=== PATIENT | male | born 1960 | race Caucasian/White ===

== ENCOUNTER 2023-06-15 18:56 | Emergency (ER) | payer OTHER, SELFPAY ==
[2023-06-15 19:07] VITALS: BP 129/69
--- NOTE | 2023-06-15 19:40 | ED.GENMED ---
History of Present Illness
General
Chief Complaint: Skin Problem
Source: patient
Exam Limitations: none
Time Seen by Provider: 06/15/23 19:24
Nursing documentation reviewed up to this point in time: agreed with
Travel History
Have you had any contact with someone who has COVID-19?: No
Do you have any symptoms of coronavirus? Fever > 100 degrees, chills, cough, shortness of breath, sore throat, loss of taste or smell, muscle aches, or headache?: No
History of Present Illness
History of Present Illness:
Patient presents to ED secondary to worsening right thigh pain, swelling, and redness over the past 5 days, after administering Pneumovax. Denies fever or chills. Denies nausea or vomiting. Denies previous history of skin infection.
Past History
Past History
ED Past Medical History: CAD, HTN and Hypercholesterolemia
ED Past Surgical History: Cardiac (stents)
Patient has exhibited threatening behavior?: No
Social History
Tobacco: Former smoker
Alcohol: None
Drug: None
Personal:
Review of Systems
Review of Systems
Allergies reviewed?: Yes
All Other Systems: ROS reviewed and negative except as documented in HPI and ROS
Constitutional: Reports no symptoms; Denies fever or chills
ABD/GI: Reports no symptoms
Musculoskeletal: Reports no symptoms
Skin: Reports other (Thigh redness/swelling)
Neurological: Reports no symptoms
Phy Exam
Physical Exam
Physical Exam:
Physical Exam
General: no apparent distress, not acutely ill. afebrile
Head: nc/at. eomi
Neck: supple. normal range of motion
Abdomen: normal bowel sounds. not tender.
Neuro: alert and oriented. no focal neurological deficits
Skin: punctured tiana noted over right lateral thigh with surrounding erythema/mild warmth. no induration noted.
Psychiatric: well kept. interactive and cooperative
Extremities: no edema. no calf tenderness.
Course
Orders/Labs/Results
Orders:
Orders
06/15/23 19:43
Cephalexin Monohydrate [Keflex] 500 mg PO NOW STA
Vital Signs
Initial and Last Documented VS:
Initial Vital Signs
Temp Pulse Resp BP Pulse Ox
98.9 F 66 18 129/69 98
06/15/23 19:07 06/15/23 19:07 06/15/23 19:07 06/15/23 19:07 06/15/23 19:07
Last Documented Vital Signs
Temp Pulse Resp BP Pulse Ox
98.9 F 66 18 129/69 98
06/15/23 19:07 06/15/23 19:07 06/15/23 19:07 06/15/23 19:07 06/15/23 19:07
MDM/Problems Addressed
MDM/Problems Addressed:
History and exam consistent with likely localized reaction to vaccination, but difficult to exclude potential development of superimposed infection. As such, patient will be advised to continue to apply warm compress but will be started on Keflex x
7 days, along with PCP follow-up next week. Advised to return to ED with significant worsening symptoms, i.e. fever/worsening pain/swelling/drainage.
*Critical Care Note
Total Time (30-74mins, 75-104mins- exclusive of procedures): Not Applicable
ED Attending Note
-
Portions of this chart may have been created with voice recognition software.� Occasional wrong word or��sound alike� substitutions may have occurred due to the inherent limitations of voice recognition software.
Discharge Plan
Departure
Patient Disposition: Home (Routine Discharge)
Date of Disposition: 06/15/23
Time of Disposition: 19:44
Patient with high blood pressure during this ER visit?: Yes
Discharge Problem:
Cellulitis
Instructions: Cellulitis (Skin Infection), Adult (DC)
Prescriptions:
New
cephalexin 500 mg capsule
500 mg PO TID Qty: 20 0RF
No Action
multivitamin 1 EACH tablet
1 ea PO DAILY
cyanocobalamin (vitamin B-12) 1,000 MCG tablet
1,000 mcg PO DAILY
clopidogrel 75 MG tablet
75 mg PO DAILY
aspirin 81 MG tablet,chewable
81 mg PO DAILY
fluoxetine 20 MG capsule
40 mg PO DAILY
carvedilol 3.125 MG tablet
3.125 mg PO BID
polyethylene glycol 3350 17 GRAMS powder in packet
17 grams PO DAILY
ondansetron HCl 8 mg Tablet
8 mg PO Q12H
pantoprazole [Protonix] 40 mg Tablet,Delayed Release (Dr/Ec)
40 mg PO BID
ezetimibe 10 mg Tablet
10 mg PO DAILY
hydrochlorothiazide 12.5 mg Tablet
12.5 mg PO BID
ranolazine 1,000 mg Tablet Extended Release 12 Hr
1,000 mg PO BID
Repatha Syringe 140 mg/mL syringe
140 mg SC Q2W Qty: 6 5RF
Activity Restrictions/Additional Instructions:
As discussed, please follow-up with your primary care physician for reevaluation next Monday. Until then, continue to apply warm compress along with prescribed antibiotics. Your prescription has been sent electronically to [facility] pharmacy in [place].
Interventions
Interventions:
*Risk Screen - Suicide Last Done: 06/15/23 19:07
*General Assessment Last Done: 06/15/23 19:07
*Neglect/Abuse Screening Last Done: 06/15/23 19:07
ED- Fall Risk Assessment Last Done: 06/15/23 20:01
*ED COVID-19 Vaccine History Last Done: 06/15/23 20:01
*Nursing Disposition Last Done: 06/15/23 20:25
ED-Skin Assessment Last Done: 06/15/23 20:01
Discharge Date and Time
Discharge Date/Time: 06/15/23 20:26
Print Language: IRISH
[2023-06-15] MEDS: KEFLEX 500 MG PO (19:56)
== END 2023-06-15 20:26 | disposition home or self-care (01) ==
LOC: EMR 18:56
PROVIDERS: EMERGENCY PHYSICIAN Emergency Medicine; FAMILY PHYSICIAN Family Medicine
DX: L03.115 Cellulitis of right lower limb (principal); I10 Essential (primary) hypertension; Z87.891 Personal history of nicotine dependence
CPT/HCPCS: 99283

== ENCOUNTER → 2024-02-08 14:59 | Outpatient (REF) | payer OTHER, SELFPAY | LOC: RCS 14:59 | PROVIDERS: ATTENDING PHYSICIAN Internal Medicine Cardiovascular Disease; FAMILY PHYSICIAN Family Medicine | DX: I25.10 Atherosclerotic heart disease of native coronary artery without angina pectoris (principal); R06.00 Dyspnea, unspecified | CPT/HCPCS: 93306 ==

== ENCOUNTER → 2024-03-12 15:04 | Outpatient (REF) | payer OTHER, SELFPAY | LOC: MRI 15:04 | PROVIDERS: ATTENDING PHYSICIAN Orthopaedic Surgery; FAMILY PHYSICIAN Family Medicine | DX: M47.812 Spondylosis without myelopathy or radiculopathy, cervical region (principal); M54.12 Radiculopathy, cervical region; Z98.1 Arthrodesis status | CPT/HCPCS: 72141 ==

== ENCOUNTER → 2024-10-21 13:54 | Outpatient (REF) | payer OTHER, SELFPAY | LOC: HWRAD 13:54 | PROVIDERS: ATTENDING PHYSICIAN Orthopaedic Surgery; FAMILY PHYSICIAN Family Medicine | DX: M54.12 Radiculopathy, cervical region (principal); Z98.1 Arthrodesis status | CPT/HCPCS: 72125 ==